=== PATIENT | female | born 1970 | race Caucasian/White ===

== ENCOUNTER 2019-11-13 10:41 | Emergency (ER) | payer SELFPAY ==
[~2019-11-13] VITALS: Ht 165.1 cm; Wt 68.0 kg
--- NOTE | 2019-11-13 10:41 | NUR ---
pt ambulated to er bed 09
[2019-11-13 10:43] VITALS: BP 135/72
--- NOTE | 2019-11-13 10:58 | NUR ---
BIB SON C/O LEFT PULSING LEG PAIN, BEGINNING AT TOP OF HAMSTRING AND RADIATING TO LEFT CALF. PAIN BEGAN ONE MONTH AGO WITH NO INJURY/ACCIDENT AND HAS NOW BECOME UNBEARABLE. PAIN WITH ROM AND SITTING. RATES PAIN 10/10, PULSING. BACK IS UNAFFECTED, RIGHT SIDE IS UNAFFECTED. SENSATION/ CIRCULATION, MOTOR SKILLS IN TACT. SKIN IN TACT. DENIES N/V/D. DENIES SOB/CHEST PAIN. RESPIRATIONS EVEN AND UNLABORED. PATIENTS REPORTS TAKING BETAMETHASONE SHE RECEIVED FROM [facility]. PMH: PREDIABETIC, ANEMIC NKA
[2019-11-13] MEDS ORDERED: KETOROLAC 30 MG/ML VIAL IM ONE (11:00)
[2019-11-13 11:41] VITALS: BP 135/72
--- NOTE | 2019-11-13 11:42 | NUR ---
Patient discharged with v/s stable. Written and verbal after care instructions given and explained. Patient alert, oriented and verbalized understanding of instructions. Ambulatory with steady gait. All questions addressed prior to discharge. ID band removed. Patient advised to follow up with PMD. Rx of FLEXIRIL given. Patient educated on indication of medication including possible reaction and side effects. Opportunity to ask questions provided and answered.
== END 2019-11-13 11:42 | disposition home or self-care (01) ==
LOC: MED 10:41
DX: R25.2 Cramp and spasm (principal); D64.9 Anemia, unspecified
CPT/HCPCS: 96372; 99283; J1885

== ENCOUNTER 2019-11-17 09:45 | Emergency (ER) | payer SELFPAY ==
[~2019-11-17] VITALS: Ht 165.1 cm; Wt 68.9 kg
[2019-11-17 09:57] VITALS: BP 121/86
--- NOTE | 2019-11-17 10:01 | NUR ---
AMB TO BED 11
--- NOTE | 2019-11-17 10:16 | NUR ---
49 Y/O F C/O LEFT LEG PAIN X 3 WEEKS 08/03. PT DENIES INJURY TO THE AREA, WOKE UP WITH PAIN IN THE UPPER LEFT LEG, DOES NOT RADIATE. THE LEG IS NOT RED, SWOLLEN, CAP REFILL LESS THAN 3. PT ABLE TO STAND, MOVE LEG, FOOT, TOES WITHOUT DIFFICULTY. PT POSITIONED FOR COMFORT, AT BEDSIDE. ROXANA
--- NOTE | 2019-11-17 11:09 | NUR ---
Dr. Morales is evaluating the patient at bedside.
[2019-11-17] MEDS ORDERED: KETOROLAC 60 MG/2 ML VIAL IM ONE (11:20)
[2019-11-17 11:37] VITALS: BP 121/86
--- NOTE | 2019-11-17 11:38 | NUR ---
Patient discharged with v/s stable. Written and verbal after care instructions given and explained. Patient alert, oriented and verbalized understanding of instructions. Ambulatory with steady gait. All questions addressed prior to discharge. ID band removed. Patient advised to follow up with PMD. Rx of CIPRO, MOTRIN, NORCO given. Patient educated on indication of medication including possible reaction and side effects. Opportunity to ask questions provided and answered.
== END 2019-11-17 11:38 | disposition home or self-care (01) ==
LOC: MED 09:45
DX: M79.18 Myalgia, other site (principal); N39.0 Urinary tract infection, site not specified
CPT/HCPCS: 81002; 96372; 99283; J1885